=== PATIENT | female | born 1990 | race Caucasian/White ===

== ENCOUNTER 2018-07-31 01:33 | Outpatient (CLI) | payer OTHER ==
[~2018-07-31] VITALS: Ht 167.6 cm; Wt 105.5 kg
[~2018-07-31 01:33] MED LIST: PRENATAL FORMU1 EAC3 PO
[2018-07-31 02:00] VITALS: BP 118/80; PULSE 81; TEMP 98
--- NOTE | 2018-07-31 02:00 | NUR ---
0145- Patient ambulatory to LDR-3 with . Patient and oriented to room. Patient into restroom to change into gown. Patient back to bed. EFM and TOCO on and tracing. Patient here with complaints of contractions every 5 minutes since 0000. Patient states the contractions are "more intense than just my BH contractions." Patient denies LOF, bleeding, or spotting. 0200-SVE 2-/-2, very posterior, by JARRED Hinkle. Patient has a scheduled IOL on 08/04/18. 0215- See Physician Notification.
[2018-07-31 02:30] VITALS: BP 106/63; PULSE 76
[2018-07-31 03:00] VITALS: BP 108/70; PULSE 73
--- NOTE | 2018-07-31 03:00 | NUR ---
0300- Spoke with Dr. Khanna for an update on pt's status with SVE, ctx pattern and FHR tracing reviewed. Orders for discharge home with precautions and intructions received. 0310- Information reviewed with pt and at the bedside. Both verbalized an understanding, agreed with the plan and state no questions or concerns at this time.
== END 2018-07-31 03:25 | disposition home or self-care (01) ==
LOC: LDRO 01:33
DX: O62.9 Abnormality of forces of labor, unspecified (principal); Z3A.39 39 weeks gestation of pregnancy

== ENCOUNTER 2018-08-01 00:05 | Inpatient (IN) | payer OTHER ==
[2018-08-01] VITALS (32 sets, daily range): BP systolic 68–125; BP diastolic 37–80; PULSE 63–107; TEMP 97.9–98.6
[~2018-08-01] VITALS: Ht 167.6 cm; Wt 106.8 kg
--- NOTE | 2018-08-01 00:15 | NUR ---
here with spouse c/o worsening ctxs tonite. was here yesterday for exam, sent home unchanged. very uncomfortable/breathes hard with ctxs q 3 min. efm on
[2018-08-01 02:14] LABS: BASO % 0.2 % (0.0-2.0); EOS % 0.2 % (0-4.0); GRAN # 7.1 (1.4-6.5); GRAN % 78.3 % (42.2-75.2); HEMOGLOBIN 13.7 g/dl (12.5-16.0); LYMPH # 1.4 (1.2-3.4); LYMPH % 15.3 % (20.0-51.0); MEAN CELL VOLUME 90 fl (80.0-100.0); MEAN CORPUSCULAR HEMOGLOBIN 30 pg (27.0-31.0); MEAN CORPUSCULAR HGB CONC 33 g/dl (33.0-37.0); MEAN PLATELET VOLUME 11.8 fl (7.4-10.4); MONO # 0.5 (0.1-0.6); MONO % 5.7 % (1.7-9.3); PLATELET COUNT 264 K/mm3 (130-400); RED BLOOD COUNT 4.54 M/mm3 (4.10-5.30); REDCELL DISTRIBUTION WIDTH-CV 13.3 % (11.5-14.5)
--- NOTE | 2018-08-01 03:19 | NUR ---
VARIABLE DECEL TO 68-70 BPM FOR 70-80 SECONDS RAPID RETURN WITH POSITON CHANGE
--- NOTE | 2018-08-01 03:43 | NUR ---
DR POWERS NOTIFIED,O2 MASK FLUID BOLUS.
--- NOTE | 2018-08-01 03:45 | NUR ---
DR POWERS AT BEDSIDE TO EVAL LATE AND VARIABLE DECELS. AROM CLEAR
--- NOTE | 2018-08-01 04:08 | NUR ---
KENISHA SARMIENTOS HERE,
--- NOTE | 2018-08-01 04:28 | NUR ---
BED APART BINDU SCRUB - BEGINS TO PUSH WITH GOOD EFFORT. PRESENT. 0435 PROLONGED VARIABLE 3 MIN TO 88 BPM.SLOW RETURN TO 170 / MIMIMAL VARIBILITY. DR POWERS HERE TO EVAL, 0448 SCALP LEAD OFF FOR VACUUM APPLICATION. 0448 VACUUM 40 SEC WITH CTX NO POP OFF 0453 VACUUM 40 SEC WITH CTX NO POP OFF 0455 VACUUM 40 SEC WITH CTX NO POP OFF 0457 VACUUM 50 SEC WITJH CTX NO POP OFF 0500 VACUUM 40 SEC WITH CTX NO POP OFF. DEEPENING VARIABLES WITH LITTLE DESCENT OF HEAD . CS CALLED AT 0510 LOWER ABD PREP, QUESTIONS ADDRESSED RE C/S. TO OP PER BED , NO FHR PER DR POWERS ORDER. PRPARES TO DURAPREP AND DRAPE
--- NOTE | 2018-08-01 07:15 | NUR ---
Pt to PACU. Report received from Shayne HENNING. 0740:BP decreased to 68/31 then 67/42. Megan HENNING here and notified. Maternal pulse 79bpm. 0745:200mcg Wil-Synepherine given IVPB per Megan HENNING order. Dr Alvarado at nurse's station and notified. Fundus firm, bleeding WNL. Pulse rate 65-80bpm. Urine concentrated yellow and clear. Dr Alvarado at bedside evaluating urine. 0748:Megan HENNING at bedside and Hespan 500ml started IV and repeat dose of Wil-Synepherine given per MILADY. 0750:BP 81/57. 0800:BP 86/46, pulse 96bpm. Pt alert and oriented. Sitting up visiting with and this nurse. 0810:Dr Cortes here and updated on pt. At bedside evaluating. Order to check H&H at 1000. Will continue to monitor at this time. 0815:Pericare done and pads changed. Vaginal bleeding WNL. 0820:Pt taken to room 213 via bed. Pt sitting up drinking water and grape juice. SCD's in place bilaterally.
--- NOTE | 2018-08-01 10:00 | NUR ---
Pt resting in bed. Pale in color. Denies any pain or nausea. Vital signs are stable at this time. Urine is dark yellow, clear and decreased urine output noted. Only 20ml in [address] Cortes. See physician notification. 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 Blood drawn. 1035:See physician notification.
[2018-08-01 10:32] LABS: GRAN # 7.9 (1.4-6.5); HEMATOCRIT 27.1 % (37.0-47.0); HEMOGLOBIN 8.7 g/dl (12.5-16.0); LYMPH # 0.8 (1.2-3.4); LYMPH % 8.1 % (20.0-51.0); MEAN CELL VOLUME 93 fl (80.0-100.0); MEAN CORPUSCULAR HEMOGLOBIN 30 pg (27.0-31.0); MEAN CORPUSCULAR HGB CONC 32 g/dl (33.0-37.0); MEAN PLATELET VOLUME 10.6 fl (7.4-10.4); MONO # 0.6 (0.1-0.6); MONO % 6.6 % (1.7-9.3); PLATELET COUNT 197 K/mm3 (130-400); RED BLOOD COUNT 2.93 M/mm3 (4.10-5.30); REDCELL DISTRIBUTION WIDTH-CV 13.5 % (11.5-14.5)
--- NOTE | 2018-08-01 13:15 | NUR ---
Dr Cortes at bedside evaluating. Pt sitting up eating lunch at this time. Plan of care reviewed and pt to have IVP tomorrow AM. Lozano to remain in until urine output is adequate, aprox 30-45cc/hr. Radiology called to verify on schedule for tomorrow.
--- NOTE | 2018-08-01 16:00 | NUR ---
Pt sits up to side of bed. stands x2. Pt denies feeling dizziness. Pericare done and pads changed. Dr Up called, updated. Notified of 300ml clear urine in servin bag and will remove servin later this evening.
--- NOTE | 2018-08-01 18:57 | NUR ---
Per lab a tech is on their way to draw patient's H&H.
[2018-08-01 19:42] LABS: HEMATOCRIT 25.9 % (37.0-47.0); HEMOGLOBIN 8.4 g/dl (12.5-16.0)
--- NOTE | 2018-08-01 19:42 | NUR ---
Anson Shi in lab H&H results are being sent now.
--- NOTE | 2018-08-01 20:45 | NUR ---
Ambulated well to restroom at this time. Servin Catheter dc'd per physician order. 450mls of clear urine drained from servin prior to removal. Clean gown on and clean peripad in place. Clean linens to bed. Ambulated around room x1 prior to returning to bed. [facility] per request.
[2018-08-02 00:10] VITALS: BP 100/54; PULSE 91; TEMP 97.4
--- NOTE | 2018-08-02 01:45 | NUR ---
Ambulated to restroom well at this time. Attempted to void. Bleeding minimal; fundus firm and midline.
[2018-08-02 07:17] VITALS: BP 97/67; PULSE 89; TEMP 98
--- NOTE | 2018-08-02 11:54 | NUR ---
Initial visit attempt; Patient out of room, Sand Mill Operator left card of congratulations for the of her daughter and information regarding the availability of [facility] at our hospital.
[2018-08-02 15:49] VITALS: BP 122/61; PULSE 99; TEMP 98.1
[2018-08-02 19:30] VITALS: BP 112/61; PULSE 97; TEMP 98.3
[2018-08-03 07:10] VITALS: BP 119/65; PULSE 93; TEMP 98.8
[2018-08-03] MEDS ORDERED: IBU600 MG PO (08:09)
[2018-08-03] MEDS ORDERED: FERROUS SU325 MG/TAB PO (08:09)
[2018-08-03] MEDS ORDERED: PERCOCET 325 MG1 TA2 PO (08:10)
[2018-08-03 15:40] VITALS: BP 113/52; PULSE 94; TEMP 97.7
[2018-08-03 20:30] VITALS: BP 123/46; PULSE 98; TEMP 97.8
[2018-08-04 08:23] VITALS: BP 125/77; PULSE 85; TEMP 98.5
--- NOTE | 2018-08-04 11:30 | NUR ---
Discharge instructions given, pt verbalizes understanding. No further questions noted. Bands matched and hugs tag removed.
== END 2018-08-04 11:50 | disposition home or self-care (01) | DRG 787 ==
LOC: LDRO 00:05 → LDR 00:47 → OB 00:47
PROVIDERS: Obstetrics & Gynecology; ADMIT Student in an Organized Health Care Education/Training Program
PROC: 10D00Z1 Extraction of Products of Conception, Low, Open Approach (ICD-10-PCS; principal; 2018-08-01)
PROC: 0W3J0ZZ Control Bleeding in Pelvic Cavity, Open Approach (ICD-10-PCS; 2018-08-01)
DX: O76 Abnormality in fetal heart rate and rhythm complicating labor and delivery (principal); O72.1 Other immediate postpartum hemorrhage; D62 Acute posthemorrhagic anemia; Z3A.39 39 weeks gestation of pregnancy; Z37.0 Single live birth; O62.0 Primary inadequate contractions; O90.81 Anemia of the puerperium; O71.81 Laceration of uterus, not elsewhere classified
CPT/HCPCS: J0690; J1885; J2175; J2250; J2370; J2405; J2590; J2795; J3010; J7120; Q9967

== ENCOUNTER → 2020-05-22 | Outpatient (CLI) | payer OTHER ==
[~2020-05-22] MED LIST changes: +FERROUS SU325 MG/TAB PO; +IBU600 MG PO; +PERCOCET 325 MG1 TA2 PO
== END ==
LOC: DIA.ED
DX: E11.9 Type 2 diabetes mellitus without complications (principal); Z79.84 Long term (current) use of oral hypoglycemic drugs
CPT/HCPCS: G0108

== ENCOUNTER → 2020-05-29 | Outpatient (CLI) | payer OTHER | LOC: DIA.ED 09:26 | DX: E11.9 Type 2 diabetes mellitus without complications (principal); Z79.84 Long term (current) use of oral hypoglycemic drugs | CPT/HCPCS: G0108 ==

== ENCOUNTER → 2020-06-25 | Outpatient (CLI) | payer OTHER | LOC: DIA.ED 08:40 | DX: E11.9 Type 2 diabetes mellitus without complications (principal); Z79.84 Long term (current) use of oral hypoglycemic drugs | CPT/HCPCS: G0108 ==